=== PATIENT | female | born 1960 | race Caucasian/White ===

== ENCOUNTER 2018-06-08 08:10 | Emergency (ER) | payer BC, OTHER ==
[2018-06-08] MEDS: predniSONE 20 MG TAB PO (09:12)
[2018-06-08] MEDS: KETOROLAC 30 MG INJ IV (09:12)
== END 2018-06-08 09:36 | disposition home or self-care (01) ==
LOC: FTE 08:10
DX: M54.40 Lumbago with sciatica, unspecified side (principal)
CPT/HCPCS: 96374; 99284-25